=== PATIENT | female | born 1985 | race Caucasian/White ===

== ENCOUNTER → 2021-12-01 | Outpatient (CLI) | payer OTHER ==
[~2021-12-01] MED LIST: CALCIUM1 CAP PO; CEFTIN500 MG PO; CRANBERRY1 CAP PO; NORCO 325 MG-51 TAB PO; PRENATAL VITAMI1 TAB PO; TRINESSA1 TAB PO
== END ==
LOC: COL.RAD 11:33
DX: E04.2 Nontoxic multinodular goiter (principal)